=== PATIENT | male | born 1985 | race Caucasian/White ===

== ENCOUNTER → 2021-11-27 | Outpatient (CLI) | payer OTHER ==
--- NOTE | 2021-11-27 23:34 | RAD ---
XR LUMBAR SPINE 2-3V History: Low back pain Comparison: None. Technique: 3 views of the lumbar spine. Findings: There are 5 non-rib bearing lumbar vertebral segments. There is no evidence of fracture. No destructive osseous lesions. Alignment is normal. No significant facet disease. Mild narrowing at L5-S1 without degenerative endplate changes. Sacroiliac joints are unremarkable. Soft tissues are unremarkable. IMPRESSION: 1. Mild narrowing at the L5-S1 disc space without endplate changes may be developmental versus degen erative. Electronically signed by: Otis Quinn MD (11/27/2021 11:31 PM) [facility]
== END ==
LOC: RAD 13:42
PROVIDERS: ATTEND Family Medicine
DX: M48.07 Spinal stenosis, lumbosacral region (principal)
CPT/HCPCS: 72100